=== PATIENT | female | born 2000 | race Caucasian/White ===

== ENCOUNTER 2021-02-08 01:10 | Observation (INO) | payer MEDICAID ==
[~2021-02-08] VITALS: Ht 149.9 cm; Wt 52.6 kg
[2021-02-08] MEDS ORDERED: TERBUTALINE SULFATE 1 MG/ML VIAL SUBCUT ONE ×2 (02:00→03:45)
[2021-02-08] MEDS ORDERED: LR 1,000 ML IV SCH (02:00)
[2021-02-08] MEDS ORDERED: TERBUTALINE SULFATE 1 MG/ML VIAL ONE (02:06)
== END 2021-02-08 04:55 | disposition home or self-care (01) ==
LOC: SPU 01:10
PROVIDERS: ADMIT Obstetrics & Gynecology; ATTEND Obstetrics & Gynecology
DX: O62.9 Abnormality of forces of labor, unspecified (principal); Z3A.31 31 weeks gestation of pregnancy
CPT/HCPCS: 81002; 96360; 96361; 96372; G0378; J3105; 59899

== ENCOUNTER 2021-02-11 19:29 | Emergency (ER) | payer MEDICAID, SELFPAY ==
[~2021-02-11] VITALS: Ht 149.9 cm; Wt 52.6 kg
[2021-02-11 19:35] VITALS: BP_SYST 121
--- NOTE | 2021-02-11 19:35 | NUR ---
Came in ER ambulatory from home this 20 year old female, AAOX4, breathing spontaneously st room air, not in distress noted. With chief complaints of sorethroat and cough for 2-3days, denies related symptoms, 32weeks , primigravida. No known medical/no surgical history , no known allergy, vital signs stable
--- NOTE | 2021-02-11 19:48 | NUR ---
Seen and examined by Dr. Cuellar, ER Attending
--- NOTE | 2021-02-11 20:08 | NUR ---
Covid Gladys, PCR, STREP GROUP A, FLU A AND B TEST DONE AND SENT TO LAB
[2021-02-11 21:48] VITALS: BP_SYST 118
--- NOTE | 2021-02-11 21:48 | NUR ---
Patient given written and verbal discharge instructions and verbalizes understanding. ER MD discussed with patient the results and treatment provided. Patient in stable condition. ID arm band removed. NO RX GIVEN. Patient educated on pain management and to follow up with PMD. Pain Scale 0/10 Opportunity for questions provided and answered.
== END 2021-02-11 21:57 | disposition home or self-care (01) ==
LOC: SED 19:29
DX: O98.513 Other viral diseases complicating pregnancy, third trimester (principal); U07.1 COVID-19; Z3A.28 28 weeks gestation of pregnancy
CPT/HCPCS: 86403; 86710; 87081; 87426; 99283; C9803; U0003; 36415

== ENCOUNTER 2021-02-22 04:36 | Observation (INO) | payer MEDICAID, SELFPAY ==
[2021-02-22] MEDS ORDERED: TERBUTALINE SULFATE 1 MG/ML VIAL ONE (05:26)
[2021-02-22] MEDS ORDERED: TERBUTALINE SULFATE 1 MG/ML VIAL SUBCUT ONE (05:30)
== END 2021-02-22 05:25 | disposition left against medical advice (07) ==
LOC: SPU 04:36
PROVIDERS: ADMIT Obstetrics & Gynecology; ATTEND Obstetrics & Gynecology
DX: O60.03 Preterm labor without delivery, third trimester (principal); O42.913 Preterm premature rupture of membranes, unspecified as to length of time between rupture and onset of labor, third trimester; Z53.29 Procedure and treatment not carried out because of patient's decision for other reasons; Z3A.33 33 weeks gestation of pregnancy
CPT/HCPCS: 81002; J3105; G0378